=== PATIENT | male | born 1945 | race Caucasian/White ===

== ENCOUNTER 2021-09-17 15:15 | Inpatient (IN) | payer MEDICARE, BC ==
[~2021-09-17] VITALS: Ht 188 cm; Wt 120.2 kg
--- NOTE | 2021-09-17 15:53 | NUR ---
DR MELGAR AT BEDSIDE FOR EVALUATION, NASAL O2 2LPM INITIATED PER MD ORDER.
[2021-09-17 16:19] LABS: MEAN CORPUSCULAR HEMOGLOBIN 29.3 uug (23.8-33.4); MEAN CORPUSCULAR VOLUME 87.3 fL (73.0-96.2); PLATELET COUNT (AUTO) 268 K/uL (152-348)
[2021-09-17 16:35] LABS: ALANINE AMINOTRANSFERASE 19 U/L (16-63); ALKALINE PHOSPHATASE 56 U/L (50-136); ASPARTATE AMINOTRANSFERASE 20 U/L (15-37); BILIRUBIN,DIRECT 0.3 mg/dL (0.0-0.2); BILIRUBIN,TOTAL 1.4 mg/dL (0.2-1.0); CARBON DIOXIDE 21 mmol/L (21-32); CHLORIDE 104 mmol/L (98-107); CREATININE 3.1 mg/dL (0.6-1.3); GLUCOSE 124 mg/dL (74-106); POTASSIUM 4.2 mmol/L (3.5-5.1); TOTAL PROTEIN, SERUM 5.9 g/dL (6.4-8.2)
[2021-09-17 16:37] LABS: HEMATOCRIT 17.9 % (36.7-47.1)
[2021-09-17 16:38] LABS: UREA NITROGEN, BLOOD 104 mg/dL (7-18)
[2021-09-17 17:38] LABS: *OCCULT BLOOD STOOL POSITIVE (NEGATIVE)
[2021-09-17] MEDS ORDERED: PANTOPRAZOLE SODIUM IV 80 MG in IV DEXTROSE 5% 100 ML IV ONE (17:45)
[2021-09-17] MEDS ORDERED: PANTOPRAZOLE SODIUM IV 80 MG in IV DEXTROSE 5% 500 ML IV ONE (17:45)
--- NOTE | 2021-09-17 18:30 | NUR ---
PT UNABLE TO REMEMBER MEDICATIONS AND DOSAGES. DR MELGAR SPOKE WITH PT'S FAMILY AND ARE EXPECTED TO COME UP WITH MEDICATION LIST.
--- NOTE | 2021-09-17 19:00 | NUR ---
Received report from Ben Marie LVN. Patient is on trendelenberg position, VSS. NAD. Will continue to monitor closely.
[2021-09-17 19:19] LABS: BAND % (MANUAL) 1 % (0-10); LYMPHOCYTES % (MANUAL) 11 % (20-40); MONOCYTES % (MANUAL) 8 % (2-10); NEUTROPHILS % (MANUAL) 80 % (42-75)
[2021-09-17] MEDS ORDERED: HYDROCODONE/APAP 5-325MG TABLET PO ONE (19:30)
[2021-09-17] MEDS ORDERED: HYDROCODONE/APAP 5-325MG TABLET ONE (19:31)
--- NOTE | 2021-09-17 19:50 | NUR ---
Blood product confirmed and verified with Ben Marie LVN.
--- NOTE | 2021-09-17 20:00 | NUR ---
Blood transfusion started. Will continue to monitor closely.
--- NOTE | 2021-09-17 20:58 | NUR ---
Called [facility] for room and spoke with JUAN Vidal. Per JUAN Vidal, will callback for room. Addendum: 09/18/21 at 0104 by REBECCA Wrong documentation. Addendum: 09/18/21 at 0105 by REBECCA Wrong documentation.
[2021-09-17 21:00] VITALS: BP 95/36
--- NOTE | 2021-09-17 21:00 | NUR ---
Patient admitted to CCU/ICU Dx GI bleed and ARF, placed on transition ER 4B with ongoing blood transfusion, will continue to monitor closely.
--- NOTE | 2021-09-17 21:03 | NUR ---
Spoke with JUAN Vidal patient will be place at Room 307. Notified Stem Shaper JUAN Arnett. Addendum: 09/18/21 at 0105 by REBECCA Wrong documentation.
[2021-09-17] MEDS ORDERED: ONDANSETRON 4 MG/2 ML VIAL IV PRN (21:15)
[2021-09-17] MEDS ORDERED: ACETAMINOPHEN 650 MG SUPP.RECT RC PRN (21:15)
[2021-09-17] MEDS ORDERED: MORPHINE SULFATE 2 MG/1 ML DISP.SYRIN IV PRN (21:15)
[2021-09-17] MEDS ORDERED: PANTOPRAZOLE SODIUM 40 MG VIAL IV SCH (21:15)
--- NOTE | 2021-09-17 21:30 | NUR ---
IV RH20G line removed by patient. Applied ice pack and elevated affected area.
[2021-09-17 21:39] LABS: IRON, SERUM 94 ug/dL (50-175)
--- NOTE | 2021-09-17 21:44 | NUR ---
Report given to JUAN Carmona. Addendum: 09/18/21 at 0105 by REBECCA Wrong documentation.
[2021-09-17 22:00] VITALS: BP 107/46
--- NOTE | 2021-09-17 22:30 | NUR ---
BT done, no reaction noted. VSS. NAD. Patient stated, "I will much more better." Notified Dr Zambrano regarding patient's condition. Per Dr Zambrano, to do H/H 2 hours post BT and if Hgb is less than 7 to transfuse another 1u PRBC and may downgrade to Telemetry.
--- NOTE | 2021-09-17 22:30 | NUR ---
BT done, no reaction noted. VSS. NAD. Will continue to monitor closely. Addendum: 09/18/21 at 0533 by REBECCA Double entry.
[2021-09-17 23:00] VITALS: BP 103/57
[2021-09-18] VITALS (18 sets, daily range): BP systolic 84–124; BP diastolic 40–82
[2021-09-18 01:28] LABS: HEMATOCRIT 17.5 % (36.7-47.1)
--- NOTE | 2021-09-18 01:58 | NUR ---
Blood verified and confirmed with Dr Correa. Blood transfusion started. VSS. NAD. Will continue to monitor closely.
--- NOTE | 2021-09-18 03:06 | NUR ---
MRSA swab done and sent to lab.
[2021-09-18] MEDS: IV D5/ 0.9% NACL 1,000 ML IV PRN ×2 (03:10→18:48)
--- NOTE | 2021-09-18 04:15 | NUR ---
BT done with no reaction noted. VSS. NAD. Will continue to monitor closely.
--- NOTE | 2021-09-18 05:16 | NUR ---
Patient transferred from ER 4B to 1B.
[2021-09-18 06:14] LABS: HEMATOCRIT 22.3 % (36.7-47.1); MEAN CORPUSCULAR HEMOGLOBIN 30.4 uug (23.8-33.4); MEAN CORPUSCULAR VOLUME 87.5 fL (73.0-96.2); PLATELET COUNT (AUTO) 231 K/uL (152-348)
[2021-09-18 06:38] LABS: THYROID STIMULATING HORMONE 0.986 mIU/mL (0.358-3.740)
[2021-09-18 06:55] LABS: ALANINE AMINOTRANSFERASE 22 U/L (16-63); ALKALINE PHOSPHATASE 57 U/L (50-136); ASPARTATE AMINOTRANSFERASE 22 U/L (15-37); CARBON DIOXIDE 22 mmol/L (21-32); CHLORIDE 107 mmol/L (98-107); CHOLESTEROL 120 mg/dL (<200); CREATININE 2.7 mg/dL (0.6-1.3); GLUCOSE 129 mg/dL (74-106); HDL CHOLESTEROL 28 mg/dL (40-60); MAGNESIUM 2.1 mg/dL (1.8-2.4); POTASSIUM 3.8 mmol/L (3.5-5.1); TOTAL PROTEIN, SERUM 5.7 g/dL (6.4-8.2); TRIGLYCERIDES 125 MG/DL (30-150)
--- NOTE | 2021-09-18 07:44 | NUR ---
Dr Kate at bedside, report given.
--- NOTE | 2021-09-18 07:47 | NUR ---
Per Dr Kate ok to downgrade to [facility] or Telemetry.
--- NOTE | 2021-09-18 08:00 | NUR ---
Left patient awake, alert, VSS, NAD. Endorsed to JUAN Thorpe.
[2021-09-18 08:16] LABS: UREA NITROGEN, BLOOD 98 mg/dL (7-18)
--- NOTE | 2021-09-18 09:11 | NUR ---
RECEIVED PATIENT ON GURNET AWAKE ALERT AND Oriented TIMES 4. PT DENIES PAIN. PT HAS NO S/S OF BLEEDING.ABD IS SOFT AND DISTENDED. DENIES ABD PAIN. DENIES NAUSEA. IVF INFUSING BY THE LEFT HAND. VS WNL SR WITH LBBB IS NOTED ON THE MONITOR. SAFEY MAINTAINED..
--- NOTE | 2021-09-18 09:26 | NUR ---
PATIENTT'S SISTER,MS RODRIGUEZ CALLED TO CHECK UP ON BROTHER STATES THAT PATIENT HAS FALLEN TWICE RECENTLY AND STATED SHE HAS BEEN IN CONTACT WITH HER BROTHER YESTERDAY PRIOR TO THIS HOSPITALIZATION. MS RODRIGUEZ STATES TYHAT SHE IS [address] AND IS UNABLE TO TRAVEL DUE TO HER MEDICAL CONDITION AND UNABLE TO TRAVEL. PATIENT. HER CONTACT NUMBER IS [phone].
--- NOTE | 2021-09-18 10:00 | NUR ---
PT SEEN BY DR BURR. PROTONIX ADMINISTERED ORDERED.EKG CHANGESW NOTED ON THE CARDIAC MONITOIR. 12 LEAD EKG DONE PER ED PHYSICIAN. DR BURR PAGED. PT FELT HE HAD THE URGE TO DEL. ASSISTED ON THE BED WEEMS. NO BM NOTED. PT ASSISTED OFF BED WEEMS PATIENT VERBALIZES THAT HES NOT PASSING GAS. VS WNL, PT IS AFEBRILE. IVF IN PROGRES ORDERED. IV SITE L HAND, IVSITE INTACT AND PATENT.
[2021-09-18] MEDS ORDERED: PANTOPRAZOLE SODIUM 40 MG VIAL ONE (10:01)
[2021-09-18] MEDS: PANTOPRAZOLE SODIUM 40 MG VIAL IV SCH ×2 (10:09→22:03)
--- NOTE | 2021-09-18 10:49 | NUR ---
PT IS ASLEEP R LLOWER EXTREMITY SWOLLEN. rKNEE INCISION NOTED. NO DRAINAGE FROM SITE. LEG IS WRAPPED IN CLEQAR PLASTIC. PT STATES THAT HI DSURGEON LETF IT WSPPED . PAPLPABLE PEDAL PULSE ARE PALPABLE. NO C/O PAIN.
[2021-09-18] MEDS ORDERED: ISOS30TA86 PO (12:11)
[2021-09-18] MEDS ORDERED: LOSA100T31 PO (12:11)
[2021-09-18] MEDS ORDERED: AMLO-212 PO (12:11)
[2021-09-18] MEDS ORDERED: TAMS-3 PO (12:11)
[2021-09-18] MEDS ORDERED: ONDA4TAB11 SL (12:11)
[2021-09-18] MEDS ORDERED: ATOR10TA PO (12:11)
[2021-09-18] MEDS ORDERED: ASPI-1420 PO (12:11)
[2021-09-18] MEDS ORDERED: METO50TA7 PO (12:11)
[2021-09-18 14:18] LABS: *BILIRUBIN,URIN NEGATIVE (NEGATIVE); *BLOOD, URINE TRACE (NEGATIVE); *CLARITY,URINE CLEAR (CLEAR); *COLOR,URINE YELLOW (YELLOW); *KETONES,URINE NEGATIVE (NEGATIVE); *UROBILINOGEN,URINE 0.2 E.U./dl (NORMAL); LEUKOCYTE ESTERASE ,URINE NEGATIVE (NEGATIVE); NITRITE, URINE NEGATIVE (NEGATIVE); PH,URINE 5.5 (5.0-8.0); UGLUCOSE NEGATIVE (NEGATIVE)
[2021-09-18 14:30] LABS: *CREATININE,URINE 70.8 mg/dL (30-125); *URINE TOTAL PROTEIN RANDOM 22.4 mg/dL (<150/24HR)
--- NOTE | 2021-09-18 15:57 | NUR ---
PT VERBALIZED WANTING TO BE TRANSFER TO A REOOM IN A REGULATR BED. ENCOURAGE PATIENT TTO VERBALIZE HIS FEELINGS. NURSING SUPERVISO PAGE. DR BURR HAS NOT RETURNED CALL PATIENT REASSURED THAT NURING IS WORKING TO GET HIM MOVED TO A REGULAR ROOM
--- NOTE | 2021-09-18 16:50 | NUR ---
PATIENT TRANSPORTED TO UNIT BY STAFF OF [facility], ROOM 330 ORDERED.T ACCOMPANIED BY THIS NURSE AND THE CHARGE NURSE ON [facility]. PT CONNECTED TO THE TELEMERY PRIOR TO TRANSFER. NO DISTRESS NOTED. PT IS IN GOOD SPIRIT. VS 124/52 O2SAT 99 ON ROOM AIR, RR 20 AN DBP 124/62. IVF D5NS @ 70 CC/HR. REPORT GIVEN TO ADRIENNE MARTINEZ.
--- NOTE | 2021-09-18 17:27 | NUR ---
Patient transferred to Telemetry unit. Report received from Ila MARTINEZ. Patient at bedside with no signs of distress or pain. Vital signs within normal limits. Patient to remain NPO until further notice. Will endorse information to PM nurse.
--- NOTE | 2021-09-18 18:42 | NUR ---
Patient tolerating care well during end of shift. Spoke to patient's sister. Patient resting comfortably in bed with no complaints of pain or distress. IV site patent and intact. Will endorse information to PM nurse.
[2021-09-18 19:18] LABS: BACTERIA,URINE NONE SEEN /HPF (NONE SEEN); RBC,URINE 0-3 /HPF (0-3); SQUAMOUS EPITHELIAL CELL,UR NONE SEEN /HPF (NONE SEEN); WBC,URINE 0-3 /HPF (0-3)
[2021-09-19] VITALS (13 sets, daily range): BP systolic 104–141; BP diastolic 38–68
[2021-09-19 06:41] LABS: MEAN CORPUSCULAR HEMOGLOBIN 30.5 uug (23.8-33.4); PLATELET COUNT (AUTO) 226 K/uL (152-348)
[2021-09-19 06:51] LABS: HEMATOCRIT 20.9 % (36.7-47.1)
[2021-09-19 07:00] LABS: ALANINE AMINOTRANSFERASE 15 U/L (16-63); ALKALINE PHOSPHATASE 66 U/L (50-136); ASPARTATE AMINOTRANSFERASE 9 U/L (15-37); BILIRUBIN,TOTAL 1.6 mg/dL (0.2-1.0); CARBON DIOXIDE 25 mmol/L (21-32); CHLORIDE 112 mmol/L (98-107); CREATINE KINASE, TOTAL 158 U/L (39-308); CREATININE 1.5 mg/dL (0.6-1.3); GLUCOSE 108 mg/dL (74-106); MAGNESIUM 2.1 mg/dL (1.8-2.4); PHOSPHOROUS 3.5 mg/dL (2.5-4.9); POTASSIUM 4.3 mmol/L (3.5-5.1); TOTAL PROTEIN, SERUM 5.8 g/dL (6.4-8.2); UREA NITROGEN, BLOOD 53 mg/dL (7-18)
--- NOTE | 2021-09-19 08:21 | NUR ---
Patient's H&H; 7.[address] Zambrano notified. Blood bank and lab notified. Orders placed. Awaiting blood.
[2021-09-19] MEDS: PANTOPRAZOLE SODIUM 40 MG VIAL IV SCH ×2 (08:50→17:00)
[2021-09-19] MEDS: IV D5/ 0.9% NACL 1,000 ML IV PRN (09:16)
--- NOTE | 2021-09-19 10:21 | NUR ---
Spoke to blood bank. Blood will be ready at 1600.
--- NOTE | 2021-09-19 12:53 | NUR ---
Spoke to Dr. Bowman with new orders: Protonix 40mg BID, place patient on clear liquid diet, hold NSAIDs and anticoagulants, and an Endoscopy on Tuesday.
--- NOTE | 2021-09-19 17:39 | NUR ---
1700 medication not administered due to patient receiving 1 unit of packed red blood cells, and per patient request to not receive medication. Will endorse information to PM nurse.
--- NOTE | 2021-09-19 18:52 | NUR ---
1 unit of PRBC transfused with no complications. Vital signs within normal range. Will endorse information to PM nurse.
[2021-09-20 00:44] VITALS: BP 130/62
[2021-09-20 04:50] VITALS: BP 138/65
--- NOTE | 2021-09-20 06:42 | NUR ---
patient rested well; safety maintained; no bleeding noted; continue to monitor.
[2021-09-20 06:50] LABS: HEMATOCRIT 22.9 % (36.7-47.1); MEAN CORPUSCULAR HEMOGLOBIN 30.5 uug (23.8-33.4); MEAN CORPUSCULAR VOLUME 87.4 fL (73.0-96.2); PLATELET COUNT (AUTO) 233 K/uL (152-348)
[2021-09-20 07:13] LABS: CREATININE 1.1 mg/dL (0.6-1.3); MAGNESIUM 1.8 mg/dL (1.8-2.4); PHOSPHOROUS 2.9 mg/dL (2.5-4.9)
[2021-09-20 08:00] VITALS: BP 129/56
[2021-09-20] MEDS: PANTOPRAZOLE SODIUM 40 MG VIAL IV SCH ×2 (09:01→16:23)
[2021-09-20] MEDS: IV D5/ 0.9% NACL 1,000 ML IV PRN ×2 (11:00→21:05)
[2021-09-20 11:31] VITALS: BP 133/66
[2021-09-20 16:00] VITALS: BP 147/71
[2021-09-20 20:00] VITALS: BP 145/67
[2021-09-20] MEDS ORDERED: TAMSULOSIN HCL 0.4 MG CAP.SR.24H PO SCH (21:00)
[2021-09-21 05:00] VITALS: BP 135/75
[2021-09-21 06:29] LABS: HEMATOCRIT 22.9 % (36.7-47.1); MEAN CORPUSCULAR HEMOGLOBIN 30.6 uug (23.8-33.4); MEAN CORPUSCULAR VOLUME 88.1 fL (73.0-96.2); PLATELET COUNT (AUTO) 250 K/uL (152-348)
[2021-09-21 06:38] LABS: MAGNESIUM 1.5 mg/dL (1.8-2.4); PHOSPHOROUS 2.9 mg/dL (2.5-4.9)
--- NOTE | 2021-09-21 07:50 | NUR ---
RECEIVED PT ON BED AWAKE AND ALERT. PT HAVE FATEMEH MIDLINE RUNNING ON D5NS 75CC/HR. ON RM AIR. NO ACUTE DISTRESS NOTED. NO SOB; NO PAIN NOTED.
[2021-09-21 08:27] VITALS: BP 131/61
[2021-09-21] MEDS: MAGNESIUM SULFATE/D5W 100 ML IV SCH ×2 (09:56→11:51)
[2021-09-21] MEDS: PANTOPRAZOLE SODIUM 40 MG VIAL IV SCH ×2 (09:56→17:51)
[2021-09-21] MEDS: ARGININE/GLUTAMINE/CALCIUM BMB 1 EACH POWD.PACK PO SCH ×2 (11:52→17:51)
[2021-09-21 12:06] LABS: A/G RATIO 0.9 (0.7-1.7); ALBUMIN 2.5 g/dL (2.9-4.4); ALPHA-1-GLOBULIN 0.3 g/dL (0.0-0.4); ALPHA-2-GLOBULIN 0.6 g/dL (0.4-1.0); GAMMA GLOBULIN 0.7 g/dL (0.4-1.8); GLOBULIN, TOTAL 2.7 g/dL (2.2-3.9); M-SPIKE Not Observed g/dL (Not Observed)
--- NOTE | 2021-09-21 15:00 | NUR ---
PT WAS NOTIFIED THAT EGD IS CANCELLED THAT WAS SET AT 1830 AND MD WILL DO IT TOMORROW. MD NOTIFIED.
[2021-09-21 15:27] VITALS: BP 164/75
--- NOTE | 2021-09-21 18:48 | NUR ---
PT STILL ON CLEAR LIQUID DIET. SIGNED CONSENT FOR EGD IS ON FILE. EGD WILL BE DONE 09/22/21 NO DEFINITE TIME YET PER RN ANESTHETIST.
[2021-09-21 19:01] VITALS: BP 128/66
--- NOTE | 2021-09-21 19:30 | NUR ---
Received pt awake, alert and orientedx4. Pt in no acute distress. Iv intact. Safety and comfort provided. Will continue to monitor.
[2021-09-21 20:00] VITALS: BP 135/75
[2021-09-22] MEDS: IV D5/ 0.9% NACL 1,000 ML IV PRN (05:08)
--- NOTE | 2021-09-22 05:35 | NUR ---
Pt slept intermittently. No significant changes noted. Prescribed medication given and pt tolerated it well. Iv intact. Vital signs stable. Pt in no acute distress. All needs attended. Call light placed within reach. Will endorse to next shift for continuity of care.
[2021-09-22 05:43] VITALS: BP 125/75
[2021-09-22 06:38] LABS: HEMATOCRIT 24.4 % (36.7-47.1); MEAN CORPUSCULAR HEMOGLOBIN 30.4 uug (23.8-33.4); MEAN CORPUSCULAR VOLUME 87.8 fL (73.0-96.2); PLATELET COUNT (AUTO) 262 K/uL (152-348)
[2021-09-22 07:06] LABS: CREATININE 1.1 mg/dL (0.6-1.3); MAGNESIUM 1.7 mg/dL (1.8-2.4); PHOSPHOROUS 2.9 mg/dL (2.5-4.9); POTASSIUM 4.2 mmol/L (3.5-5.1)
[2021-09-22] MEDS: ARGININE/GLUTAMINE/CALCIUM BMB 1 EACH POWD.PACK PO SCH ×2 (09:00→17:00)
--- NOTE | 2021-09-22 09:00 | NUR ---
PT STILL NPO. STILL WAITING FOR EGD PROCEDURE. NO CONFIRMED TIME YET PER DR. SALDIVAR Addendum: 09/22/21 at 1644 by DARIN BARTLETT RN DR SUBRAMANIAN WAS NOTIFIED. ORDERED D5 1/5NS AT 75ML/HR.
[2021-09-22] MEDS: PANTOPRAZOLE SODIUM 40 MG VIAL IV SCH ×2 (10:00→17:31)
[2021-09-22] MEDS ORDERED: MAGNESIUM OXIDE 400 MG TABLET PO ONE (11:00)
[2021-09-22 12:03] VITALS: BP 142/66
[2021-09-22] MEDS ORDERED: IV D5 1/2 NS 1000 ML 1,000 ML IV PRN (16:15)
[2021-09-22 16:20] VITALS: BP 136/69
--- NOTE | 2021-09-22 18:17 | NUR ---
DR SALDIVAR CONFIRED EGD AT 1930. CHUTE MAN NOTIFIED.
--- NOTE | 2021-09-22 18:30 | NUR ---
PT WAS PICKUP BY OR FOR EGD PROCEDURE. PT CONDITION WAS ENDORESEED TO CHASSIS WIRER.
--- NOTE | 2021-09-22 19:30 | NUR ---
pt went to the gi lab for egd procedure in stable condition
[2021-09-22] MEDS ORDERED: MIDAZOLAM HCL 2 MG/2 ML VIAL ONE ×2 (19:37→19:43)
[2021-09-22] MEDS ORDERED: FENTANYL CITRATE 100 MCG/2 ML AMPUL ONE (19:37)
--- NOTE | 2021-09-22 20:45 | NUR ---
pt received from gi lab in stable condition .vs are stable call light with in reach
[2021-09-23 00:08] VITALS: BP 140/62
[2021-09-23 04:40] VITALS: BP 141/62
[2021-09-23] MEDS: PANTOPRAZOLE SODIUM 40 MG VIAL IV SCH (05:29)
[2021-09-23 06:09] LABS: HEMATOCRIT 25.1 % (36.7-47.1); MEAN CORPUSCULAR HEMOGLOBIN 30.1 uug (23.8-33.4); MEAN CORPUSCULAR VOLUME 87.8 fL (73.0-96.2); PLATELET COUNT (AUTO) 268 K/uL (152-348)
[2021-09-23 06:25] LABS: CREATININE 1.1 mg/dL (0.6-1.3); MAGNESIUM 1.8 mg/dL (1.8-2.4); POTASSIUM 3.7 mmol/L (3.5-5.1)
--- NOTE | 2021-09-23 08:00 | NUR ---
awake. alert and oriented, states feels much better, no dizziness, no bleeding noted, tolerated food given last night, no nausea, explained plan of care, verbalized understanding, safety measures maintained, right kneesurgical incision with clear dsg-dry and intact, left elbow abrased area wisth scab- clean and dry
[2021-09-23] MEDS ORDERED: PANT40TA2 PO (08:12)
[2021-09-23] MEDS: ARGININE/GLUTAMINE/CALCIUM BMB 1 EACH POWD.PACK PO SCH (08:21)
--- NOTE | 2021-09-23 09:00 | NUR ---
Dr Armstrong spoke to pt- pt is being discharged today
[2021-09-23 12:11] VITALS: BP 142/65
--- NOTE | 2021-09-23 13:04 | NUR ---
seen by PT for eval, CM spoke to sister Jossie and pt is gong home per ambulance, pt states his friend will be helping him at home, midline removed on left upper arm and applied dsg, no redness/swelling noted on site. Discharge instructions given and verbalized understanding
--- NOTE | 2021-09-23 14:35 | NUR ---
ambulance here, report given, took pt per lisandrarrajendra in stable condition with belonging
== END 2021-09-23 14:35 | disposition home health service (06) | DRG 377 ==
LOC: ER 15:15 → TELE3 21:47 → CCU 22:09 → TELE3 09-18 17:06 → MEDSURG3 09-20 22:36 → MED 09-22 20:49 → MEDSURG3 09-23 01:00
PROVIDERS: ADMIT Internal Medicine; ATTEND Internal Medicine
PROC: 30233N1 Transfusion of Nonautologous Red Blood Cells into Peripheral Vein, Percutaneous Approach (ICD-10-PCS; principal; 2021-09-17)
PROC: 05HF33Z Insertion of Infusion Device into Left Cephalic Vein, Percutaneous Approach (ICD-10-PCS; 2021-09-19)
PROC: 0DB68ZX Excision of Stomach, Via Natural or Artificial Opening Endoscopic, Diagnostic (ICD-10-PCS; 2021-09-22)
DX: K29.71 Gastritis, unspecified, with bleeding (principal); E43 Unspecified severe protein-calorie malnutrition; N17.0 Acute kidney failure with tubular necrosis; D62 Acute posthemorrhagic anemia; D68.59 Other primary thrombophilia; K26.4 Chronic or unspecified duodenal ulcer with hemorrhage; T39.395A Adverse effect of other nonsteroidal anti-inflammatory drugs [NSAID], initial encounter; Y92.019 Unspecified place in single-family (private) house as the place of occurrence of the external cause; G31.9 Degenerative disease of nervous system, unspecified; Z74.09 Other reduced mobility; E66.9 Obesity, unspecified; Z68.34 Body mass index [BMI] 34.0-34.9, adult; Z96.651 Presence of right artificial knee joint; M19.90 Unspecified osteoarthritis, unspecified site; Z95.2 Presence of prosthetic heart valve; Z95.0 Presence of cardiac pacemaker; Z90.5 Acquired absence of kidney; Z85.528 Personal history of other malignant neoplasm of kidney; I13.10 Hypertensive heart and chronic kidney disease without heart failure, with stage 1 through stage 4 chronic kidney disease, or unspecified chronic kidney disease; N18.9 Chronic kidney disease, unspecified; I25.10 Atherosclerotic heart disease of native coronary artery without angina pectoris; E78.00 Pure hypercholesterolemia, unspecified; D72.829 Elevated white blood cell count, unspecified; R73.9 Hyperglycemia, unspecified; R55 Syncope and collapse; I73.9 Peripheral vascular disease, unspecified
CPT/HCPCS: 36415; 70030-TC; 70450; 71045; 83550; 83735; 83970; 84100; 84155; 84156; 84165; 84300; 84443; 84484; 85018; 85025; 85730; 86850; 86900; 86901; 86920; 87040; 93005; 97161; C9113; G0378; J2250; J2270; J3010; J3475; J7040; J7042; J7060; P9016